=== PATIENT | female | born 1945 | race Caucasian/White ===

== ENCOUNTER → 2018-04-17 11:01 | Outpatient (CLI) | payer MEDICARE, SELFPAY ==
--- NOTE | 2018-04-17 | DI.MG.S_ITS ---
BILATERAL DIGITAL SCREENING MAMMOGRAM 3D/2D WITH CAD: 04/17/2018 CLINICAL: Routine screening. Family history of breast cancer. Comparison is made to exams dated: 04/13/2017 mammogram, 04/03/2016 mammogram, and 03/29/2015 mammogram - [facility]. There are scattered fibroglandular elements in both breasts. Current study was also evaluated with a Computer Aided Detection (CAD) system. There are grouped fine punctate calcifications in the left breast at 11 o'clock posterior depth. No other significant masses, calcifications, or other findings are seen in either breast. IMPRESSION: INCOMPLETE: NEEDS ADDITIONAL IMAGING EVALUATION The grouped fine punctate calcifications in the left breast are indeterminate. Mediolateral, spot magnification, and additional views are recommended. This exam was interpreted at Station ID: [id number]. NOTE: For mammograms, a report in lay terms will be sent to the patient. Approximately 15% of breast malignancies will not be visualized mammographically. In the management of a palpable breast mass, a negative mammogram must not discourage biopsy of a clinically suspicious lesion. Electronically Signed By: Sixto martínez/tony:04/17/2018 16:06:37 letter sent: Additional Imaging Needed ACR BI-RADS Category 0: Incomplete 3340F
== END ==
PROVIDERS: Visit Provider Physician Assistant
DX: Z12.31 Encounter for screening mammogram for malignant neoplasm of breast (principal); Z80.3 Family history of malignant neoplasm of breast; R92.8 Other abnormal and inconclusive findings on diagnostic imaging of breast
CPT/HCPCS: 77063; 77067

== ENCOUNTER → 2018-04-29 08:39 | Outpatient (CLI) | payer MEDICARE, SELFPAY ==
--- NOTE | 2018-04-29 | DI.MG.S_ITS ---
UNILATERAL LEFT DIGITAL DIAGNOSTIC MAMMOGRAM 3D/2D WITH ADDITIONAL VIEWS: 04/29/2018 CLINICAL: Additional evaluation requested from prior study. Comparison is made to exams dated: 04/17/2018 mammogram, 04/13/2017 mammogram, and 04/03/2016 mammogram - [facility]. There are scattered fibroglandular elements in the left breast. There are clustered linear calcifications in the left breast at 11 o'clock posterior depth. No other significant masses or calcifications are seen in the breast. IMPRESSION: SUSPICIOUS OF MALIGNANCY The clustered linear calcifications in the left breast are at a low suspicion for malignancy. A stereotactic biopsy is recommended. This exam was interpreted at Station ID: [id number]. NOTE: For mammograms, a report in lay terms will be sent to the patient. Approximately 15% of breast malignancies will not be visualized mammographically. In the management of a palpable breast mass, a negative mammogram must not discourage biopsy of a clinically suspicious lesion. SUMMARY: This was discussed with the patient by the radiologist Dr. Causey at the time of the exam. Electronically Signed By: Marlin ferrari/:04/29/2018 09:36:46 letter sent: Biopsy Required ACR BI-RADS Category 4a: Suspicious abnormality - low suspicion for malignancy 3344F
== END ==
PROVIDERS: PCP Physician Assistant; Visit Provider Physician Assistant
DX: R92.1 Mammographic calcification found on diagnostic imaging of breast (principal)
CPT/HCPCS: 77065; G0279

== ENCOUNTER → 2018-12-12 08:34 | Outpatient (CLI) | payer MEDICARE, SELFPAY ==
--- NOTE | 2018-12-12 | DI.US.S_ITS ---
PROCEDURE: US CAROTID DOPPLER BI INDICATIONS: OCCLUSION TECHNIQUE: Color and pulse Doppler interrogation was performed of both carotid systems, with image documentation and velocity measurements. COMPARISON: [facility], CAROTID ARTERY DOPPLER BILAT, 01/22/2012, 14:00. [facility], CAROTID ARTERY DOPPLER BILAT, 12/26/2010, 12:44. [facility], , CAROTID ARTERY DOPPLER BILAT, 03/17/2010, 10:46. [facility], , CAROTID ARTERY DOPPLER BILAT, 11/09/2009, 10:54. [facility], , CAROTID ARTERY DOPPLER BILAT, 06/30/2008, 8:30. [facility], , CAROTID ARTERY DOPPLER BILAT, 01/19/2014, 8:53. FINDINGS: Stenosis calculations are based on SRU (Society of Radiologists in Ultrasound) criteria. Right side: Brachial blood pressure: 176/86 mm Hg. Common carotid artery peak systolic velocity: 73 cm/sec (prior 69 cm/s). Internal carotid artery peak systolic velocity: Occluded Internal carotid artery end diastolic velocity: Occluded External carotid artery peak systolic velocity: 124 cm/sec (prior 132 cm/s). ICA/CCA peak systolic ratio: N./A. Oliver scale imaging description: There is an occluded right internal carotid artery, as before. Percent internal carotid artery stenosis: 100% Vertebral artery: Flow direction is antegrade. Left side: Brachial blood pressure: 157/88 mm Hg. Common carotid artery peak systolic velocity: 99 cm/sec (prior 105 cm/s). Internal carotid artery peak systolic velocity: 95 cm/sec (prior 119 cm/s). Internal carotid artery end diastolic velocity: 23 cm/sec (prior 34 cm/s). External carotid artery peak systolic velocity: 113 cm/sec (prior 141 cm/s). ICA/CCA peak systolic ratio: 1 (prior 1.1). Oliver scale imaging description: Moderate atherosclerotic changes are seen. Percent internal carotid artery stenosis: Less than 50% by velocity criteria. Vertebral artery: Flow direction is antegrade. 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 No hemodynamically significant stenosis can be seen involving the left internal carotid artery. Arterial hypertension is measured at the time of this study. Dictated by: Louis Melvin M.D. on 12/12/2018 at 8:50 Approved by: Louis Melvin M.D. on 12/12/2018 at 8:52
== END ==
PROVIDERS: PCP Physician Assistant; Visit Provider Physician Assistant
DX: I65.21 Occlusion and stenosis of right carotid artery (principal)
CPT/HCPCS: 93880

== ENCOUNTER → 2019-06-03 15:08 | Outpatient (CLI) | payer MEDICARE, SELFPAY ==
--- NOTE | 2019-06-03 | DI.MG.S_ITS ---
BILATERAL DIGITAL SCREENING MAMMOGRAM 3D/2D WITH CAD: 06/03/2019 CLINICAL: Routine screening. Family history of breast cancer. Comparison is made to exams dated: 04/29/2018 mammogram, 04/17/2018 mammogram, 04/13/2017 mammogram, and 04/03/2016 mammogram - [facility]. There are scattered fibroglandular elements in both breasts. Current study was also evaluated with a Computer Aided Detection (CAD) system. There are benign vascular calcifications in both breasts. No significant masses, calcifications, or other findings are seen in either breast. There has been no significant interval change. IMPRESSION: There is no mammographic evidence of malignancy. A 1 year screening mammogram is recommended. This exam was interpreted at Station ID: [id number]. NOTE: For mammograms, a report in lay terms will be sent to the patient. Approximately 15% of breast malignancies will not be visualized mammographically. In the management of a palpable breast mass, a negative mammogram must not discourage biopsy of a clinically suspicious lesion. Electronically Signed By: Sixto martínez/tony:06/03/2019 16:56:15 letter sent: Normal Exam ACR BI-RADS Category 2: Benign Finding(s) 3342F
== END ==
PROVIDERS: PCP Internal Medicine; Visit Provider Internal Medicine
DX: Z12.31 Encounter for screening mammogram for malignant neoplasm of breast (principal); Z80.3 Family history of malignant neoplasm of breast
CPT/HCPCS: 77063; 77067

== ENCOUNTER → 2019-06-23 13:40 | Outpatient (CLI) | payer MEDICARE, SELFPAY | PROVIDERS: PCP Internal Medicine; Visit Provider Internal Medicine | DX: M85.88 Other specified disorders of bone density and structure, other site (principal); Z78.0 Asymptomatic menopausal state; E07.9 Disorder of thyroid, unspecified; Z87.891 Personal history of nicotine dependence | CPT/HCPCS: 77080 ==

== ENCOUNTER → 2019-09-23 10:15 | Outpatient (CLI) | payer MEDICARE, SELFPAY ==
[2019-09-23 11:55] LABS: Alanine Aminotransferase 19 IU/L (<35); Albumin 4.5 g/dL (3.5-5.0); Albumin Globulin Ratio 1.3 (1.0-2.8); Alkaline Phosphatase 137 U/L (38-126); Aspartate Aminotransferase 33 IU/L (14-36); BUN Creatinine Ratio 14.4 (6-22); Bilirubin Total 0.7 mg/dL (0.2-1.3); Blood Urea Nitrogen 13 mg/dL (7-17); Calcium 10.5 mg/dL (8.4-10.2); Carbon Dioxide 28 mmol/L (22-32); Chloride 102 mmol/L (98-107); Cholesterol 172 mg/dL (140-199); Estimated Glomerular Filt Rate > 60.0 mL/min (>60); Globulin 3.4 g/dL (1.7-4.1); Glucose 86 mg/dL (80-110); HDL Cholesterol 40 mg/dL (40-60); HEMOLYSIS < 15 (0-50); LDL Cholesterol Calculated 103 mg/dL (<100); Potassium 4.1 mmol/L (3.4-5.1); Sodium 140 mmol/L (137-145); Total Protein 7.9 g/dL (6.3-8.2); Triglycerides 145 mg/dL (35-150)
[2019-09-23 13:00] LABS: Thyroid Stimulating Hormone 2.85 uIU/mL (0.47-4.68)
[2019-09-23 13:06] LABS: Vitamin D 25 Hydroxy (D3) 34.8 ng/mL (30.0-100.0)
== END ==
PROVIDERS: PCP Internal Medicine; Referring Provider Internal Medicine; Visit Provider Internal Medicine
DX: E03.9 Hypothyroidism, unspecified (principal); M85.80 Other specified disorders of bone density and structure, unspecified site; E55.9 Vitamin D deficiency, unspecified; E78.5 Hyperlipidemia, unspecified
CPT/HCPCS: 36415; 80053; 80061; 82306; 84443

== ENCOUNTER → 2020-06-07 09:44 | Outpatient (CLI) | payer MEDICARE, SELFPAY ==
--- NOTE | 2020-06-07 | DI.MG.S_ITS ---
BILATERAL DIGITAL SCREENING MAMMOGRAM 3D/2D WITH CAD: 06/07/2020 CLINICAL: Routine screening. Family history of breast cancer. Comparison is made to exams dated: 06/03/2019 mammogram, 04/29/2018 mammogram, 04/17/2018 mammogram, and 04/13/2017 mammogram - [facility]. There are scattered fibroglandular elements in both breasts. Current study was also evaluated with a Computer Aided Detection (CAD) system. There are benign vascular calcifications in both breasts. No significant masses, calcifications, or other findings are seen in either breast. There has been no significant interval change. IMPRESSION: BENIGN There is no mammographic evidence of malignancy. A 1 year screening mammogram is recommended. This exam was interpreted at Station ID: [id number]. NOTE: For mammograms, a report in lay terms will be sent to the patient. Approximately 15% of breast malignancies will not be visualized mammographically. In the management of a palpable breast mass, a negative mammogram must not discourage biopsy of a clinically suspicious lesion. Electronically Signed By: Marlin ferrari/tony:06/07/2020 12:53:02 letter sent: Normal Exam ACR BI-RADS Category 2: Benign Finding(s) 3342F
== END ==
PROVIDERS: PCP Internal Medicine; Referring Provider Internal Medicine; Visit Provider Internal Medicine
DX: Z12.31 Encounter for screening mammogram for malignant neoplasm of breast (principal); Z80.3 Family history of malignant neoplasm of breast
CPT/HCPCS: 77063; 77067

== ENCOUNTER 2020-09-16 08:38 | Emergency (ER) | payer MEDICARE, SELFPAY ==
[2020-09-16] VITALS (22 sets, daily range): BP systolic 162–241; BP diastolic 62–132; PULSE 67–103; RESP 14–21; TEMP 36.2; O2SAT 98–100; BMI 31.5
--- NOTE | 2020-09-16 09:00 | DI.RAD.S_ITS ---
PROCEDURE: XR CHEST 1V INDICATIONS: chest pain TECHNIQUE: One view of the chest was acquired. COMPARISON: [facility], , CHEST 1 VIEW, 02/14/2016, 12:51. FINDINGS: Surgical changes and devices: None. Lungs and pleura: Lungs are clear. No pleural effusions or pneumothorax. Mediastinum: Mediastinal contours appear normal. Heart size is normal. Bones and chest wall: No suspicious bony lesions. Overlying soft tissues appear unremarkable. IMPRESSION: No acute cardiopulmonary pathology. Dictated by: Heriberto Humphrey M.D. on 09/16/2020 at 9:22 Approved by: Heriberto Humphrey M.D. on 09/16/2020 at 9:40
[2020-09-16 09:09] LABS: Add Manual Diff / Slide Review NO; Basophils Absolute Auto 100 /uL (0-100); Basophils Percent Auto 0.7 % (0-2); Eosinophils Absolute Auto 400 /uL (0-450); Eosinophils Percent Auto 3.8 % (2-4); Hematocrit 43.6 % (36-46); Hemoglobin 14.5 g/dL (12.0-16.0); Lymphocytes Absolute Auto 3400 /uL (1100-4500); Lymphocytes Percent Auto 36.9 % (25-40); Mean Corpuscular HGB Conc 33.4 % (30-36); Mean Corpuscular Hemoglobin 29.8 PG (26-34); Mean Corpuscular Volume 89.3 fL (80-100); Monocytes Absolute Auto 800 /uL (0-900); Monocytes Percent Auto 8.8 % (3-14); Neutrophils Absolute Auto 4600 /uL (1500-7000); Neutrophils Percent Auto 49.8 % (50-75); Platelet Count 304 X10^3/uL (150-400); Red Blood Cell Count 4.88 X10^6/uL (4.0-5.2); Red Cell Distribution Width 13.2 % (11.6-14.8); White Blood Cell Count 9.2 X10^3/uL (4.5-11.0)
[2020-09-16 09:14] LABS: Alanine Aminotransferase 26 IU/L (<35); Albumin 4.3 g/dL (3.5-5.0); Albumin Globulin Ratio 1.2 (1.0-2.8); Alkaline Phosphatase 135 U/L (38-126); Aspartate Aminotransferase 45 IU/L (14-36); BUN Creatinine Ratio 15.1 (6-22); Bilirubin Total 0.7 mg/dL (0.2-1.3); Blood Urea Nitrogen 14 mg/dL (7-17); Calcium 10.1 mg/dL (8.4-10.2); Carbon Dioxide 28 mmol/L (22-32); Chloride 107 mmol/L (98-107); Creatine Kinase 182 U/L (30-135); Estimated Glomerular Filt Rate 58.6 mL/min (>60); Globulin 3.5 g/dL (1.7-4.1); Glucose 106 mg/dL (80-110); Lipase 145 U/L (23-300); Potassium 4.1 mmol/L (3.4-5.1); Sodium 138 mmol/L (137-145); Total Protein 7.8 g/dL (6.3-8.2)
--- NOTE | 2020-09-16 09:15 | ED_ITS ---
HPI - General Adult General Chief complaint: Hypertension Stated complaint: BLOOD PRESSURE HIGH THIS MORNING Time Seen by Provider: 09/16/20 08:44 Source: patient Mode of arrival: Ambulatory Limitations: no limitations History of Present Illness HPI narrative: This is a 74-year-old female who comes to the emergency department with complaint of elevated blood pressure. Patient states she has also had some left-sided chest pain as well as pain in her shoulder blades for the last 3 days. This morning she had some fluttering sensation or chest. She went to check her blood pressure noted it was 190/105 with a pulse of 75. She states for the last 3 days she has had some discomfort under the left axillary area radiating to her left breast. She also noted this morning that she has had some discomfort between the middle of her shoulder blades in the midthoracic region. She describes it as 2/10. Patient stays that nothing seems to exacerbate it other than palpation underneath the armpit region. Exertion does not worsen it. She denies fevers, chills, cough, cold or congestion. She denies any shortness of breath. She has some mild nausea this morning. Denies any issues with vomiting, no diaphoresis except when she carried a total of 10 bags weighing 50 lb each up the stairs earlier this week. Patient did have a stroke in 2007, she takes medication for hypertension dyslipidemia hypothyroidism. This includes lisinopril, atorvastatin levothyroxine which she also took this morning. She takes an aspirin 81 mg daily. She denies any prior heart attacks, no stress test or catheterization in the past. Denies any surgeries. No tobacco, alcohol or illicit. Primary care was Caroline Hines who is leaving the area and she is transitioning to [facility] [place]. Related Data Home Medications Medication Instructions Recorded Confirmed ASPIRIN (Aspirin Low Dose) 81 mg PO Q DAY #0 06/08/10 CALCIUM CARBONATE/VITAMIN D3 600 mg PO Q DAY #0 06/08/10 (Oyster Shell Calcium-Vit D Tab) CHOLECALCIFEROL (VITAMIN D3) 200 iu PO Q DAY #0 06/08/10 (Vitamin D3) Previous Rx's Medication Instructions Recorded lisinopril 40 mg PO DAILY #20 tab 09/16/20 Allergies Allergy/AdvReac Type Severity Reaction Status Date / Time No Known Drug Allergies Allergy Verified 09/16/20 08:45 Review of Systems Review of Systems ROS Unobtainable: All systems reviewed & are unremarkable except as noted in HPI and below Patient History Social History Smoking Status: Unknown if ever smoked Smoking Status: Unknown if ever smoked alcohol intake frequency: holidays/special occasions only Substance Use Type: does not use Exam Narrative Exam Narrative: GENERAL: Alert and oriented x three, well-nourished, well- appearing elderly female in mild distress. HEENT: Head normocephalic, atraumatic, EOMI, pupils reactive, face symmetric, moist mucous membranes NECK: Supple, full range of motion CARDIOVASCULAR: Regular rate and rhythm without murmurs, rubs or gallops. RESPIRATORY: Breath sounds equal bilaterally, no wheezes rales or rhonchi. ABDOMEN: Soft, nontender. Normoactive bowel sounds all 4 quadrants. No guarding or rebound, rigidity, no mass : No CVA tenderness BACK: No cervical, thoracic or lumbar vertebral point tenderness. Patient has some mild midline thoracic tenderness in the soft tissue on each side of the spine. Patient has normal range of motion. Patient's gait is normal. Patient has tenderness with palpation in the left lateral chest in the soft tissue over rib 5-6 region. No swelling, warmth or skin changes. No lumps or nodules noted. EXTREMITIES: Normal range of motion, no clubbing or edema. Neurovascularly intact NEUROLOGICAL: Cranial nerves II through XII grossly intact. Moving all extremities SKIN: Warm, dry, no petechiae, no rashes or lesions. Initial Vital Signs Initial Vital Signs: Vital Signs Temperature 97.1 F L 09/16/20 08:40 Pulse Rate 103 H 09/16/20 08:40 Respiratory Rate 15 09/16/20 08:40 Blood Pressure 241/109 H 09/16/20 08:40 Pulse Oximetry 98 09/16/20 08:40 Course Orders Ordered: ED Orders 09/16/20 10:45 Troponin I Stat Discontinued Medications Amlodipine Besylate (Amlodipine 5 Mg Tablet) 5 mg PO NOW ONE Stop: 09/16/20 10:01 Last Admin: 09/16/20 10:04 Dose: 5 mg Documented by: SARKIS Aspirin (Aspirin 81 Mg Chew Tab) 324 mg PO NOW ONE Stop: 09/16/20 09:16 Last Admin: 09/16/20 09:20 Dose: 243 mg Documented by: SARIKS Hydralazine HCl (Hydralazine 20 Mg/Ml Vial) 10 mg IV NOW ONE Stop: 09/16/20 11:42 Last Admin: 09/16/20 12:06 Dose: 10 mg Documented by: AHMET Reevaluation(s) Reevaluation #1: Follow up with patient, BP improved to 160 but then returned to 200 range. Given amlodipine 5mg in ED. Plan for repeat ekg and trop. Patient is currently on lisinopril 10mg daily. Time: 10:11 Vital Signs Vital signs: Vital Signs - 8 hr 09/16/20 11:00 09/16/20 11:15 09/16/20 11:30 Pulse Rate 67 68 67 Respiratory Rate 16 18 14 Blood Pressure 162/62 H Pulse Oximetry 100 99 99 09/16/20 11:45 09/16/20 12:00 09/16/20 12:07 Pulse Rate 75 71 77 Respiratory Rate 19 18 21 Blood Pressure 210/132 H Pulse Oximetry 99 99 99 09/16/20 12:10 09/16/20 12:15 09/16/20 12:21 Pulse Rate 76 81 84 Respiratory Rate 16 18 Blood Pressure 182/79 H 169/62 H 164/74 H Pulse Oximetry 98 99 09/16/20 12:27 Pulse Rate 81 Respiratory Rate 20 Blood Pressure 164/74 H Pulse Oximetry 100 Medical Decision Making Lab Data Lab results reviewed: Yes I reviewed the patient's lab results. Result diagrams: 09/16/20 08:45 09/16/20 08:45 Labs: Lab Results 09/16/20 09/16/20 09/16/20 Range/Units 08:45 08:45 10:45 WBC 9.2 (4.5-11.0) X10^3/uL RBC 4.88 (4.0-5.2) X10^6/uL Hgb 14.5 (12.0-16.0) g/dL Hct 43.6 (36-46) % MCV 89.3 (80-100) fL MCH 29.8 (26-34) PG MCHC 33.4 (30-36) % RDW 13.2 (11.6-14.8) % Plt Count 304 (150-400) X10^3/uL Neut % (Auto) 49.8 L (50-75) % Lymph % (Auto) 36.9 (25-40) % Greene % (Auto) 8.8 (3-14) % Eos % (Auto) 3.8 (2-4) % Baso % (Auto) 0.7 (0-2) % Neut # (Auto) 4600 (9964-8251) /uL Lymph # (Auto) 3400 (1376-9535) /uL Greene # (Auto) 800 (0-900) /uL Eos # (Auto) 400 (0-450) /uL Baso # (Auto) 100 (0-100) /uL Sodium 138 (137-145) mmol/L Potassium 4.1 (3.4-5.1) mmol/L Chloride 107 (98-107) mmol/L Carbon Dioxide 28 (22-32) mmol/L BUN 14 (7-17) mg/dL Creatinine 0.93 (0.52-1.04) mg/dL Estimated GFR 58.6 L (>60) mL/min BUN/Creatinine Ratio 15.1 (6-22) Glucose 106 (80-110) mg/dL Calcium 10.1 (8.4-10.2) mg/dL Total Bilirubin 0.7 (0.2-1.3) mg/dL AST 45 H (14-36) IU/L ALT 26 (<35) IU/L Alkaline Phosphatase 135 H (38-126) U/L Total Creatine Kinase 182 H (30-135) U/L CK-MB (CK-2) 1.91 (<2.37) ng/mL CK-MB (CK-2) Rel Index 1.0 L (1.5-5.0) % Troponin I < 0.012 < 0.012 (0.01-0.034) ng/mL Total Protein 7.8 (6.3-8.2) g/dL Albumin 4.3 (3.5-5.0) g/dL Globulin 3.5 (1.7-4.1) g/dL Albumin/Globulin Ratio 1.2 (1.0-2.8) Lipase 145 (23-300) U/L Imaging Data Chest x-ray: Radiologist's Impression: [address] [id number] ReportSigned Patient: April Lobo BMR#: [id number]: 4Acct:[id number]/Sex: 74 / FDate of Service: 09/16/20Loc: EDAccession Number: [id number] Procedure: XR chest 1V Ordering Provider: Jacquelyn Brown D.O. PROCEDURE: XR CHEST 1V INDICATIONS: chest pain TECHNIQUE: One view of the chest was acquired. COMPARISON: [facility], CHEST 1 VIEW, 02/14/2016, 12:51. FINDINGS: Surgical changes and devices: None. Lungs and pleura: Lungs are clear. No pleural effusions or pneumothorax. Mediastinum: Mediastinal contours appear normal. Heart size is normal. Bones and chest wall: No suspicious bony lesions. Overlying soft tissues appear unremarkable. IMPRESSION: No acute cardiopulmonary pathology. Dictated by: Heriberto Humphrey M.D. on 09/16/2020 at 9:22 Approved by: Heriberto Humphrey M.D. on 09/16/2020 at 9:40 ECG Data Attestation: I personally reviewed and interpreted this ECG as follows: Prior ECG tracings: available for review Interpretation: Sinus rhythm rate of 75 OH 152 QRS is 66 and QTC of 419. No ST elevation depression appreciated. Patient has prior from 02/14/16 that appears s imilar. EKG2. Sinus rhythm rate of 66, P are 162, QRS of [address]TC [address] elevation depression. Patient has prior EKG from today and 02/14/16. [facility] Narrative Medical decision making narrative: This is a 74-year-old female who comes to the emergency department with complaint of hypertension, patient also describes some chest pain and upper thoracic back pain. Patient's chest and thoracic back pain began after she carried [address] 50 lb up the stairs earlier in the week. She has tried some Tylenol with improvement. Her main concern is she was hypertensive this morning and has a history of CVA. Patient had her morning medications but continues to be quite hypertensive. Her lowest ever was 160 but she continues to be 200 consistently. The given oral amlodipine monitored for over an hour and a half with minimal improvement. She was given 1 dose of hydralazine and we discussed increasing her lisinopril for the short term with follow-up with primary care. Patient does not appear to have any end-organ disease and I suspect that her thoracic and left-sided chest pain are more secondary to musculoskeletal changes based on her exam findings as well as lab, EKG and recent history. Discharge Plan Departure Patient Disposition: Home Clinical Impression: Hypertension, Back pain, thoracic Instructions: DI for High Blood Pressure Activity Restrictions/Additional Instructions: Follow up with your physician in the next several days. Call for an appointment or phone visit. Discuss with your physician about if you need to continue with the increased dose of your blood pressure medication or if it should be adjusted. Increase your lisinopril from 20mg to 40mg once daily. You may take Tylenol up to a 1000 mg every 8 hours as needed for pain. Continue your other home medications as prescribed. Return to the ER for fevers, dizziness, passing out, new or worsening chest pain, shortness of breath, severe abdominal pain, swelling in your extremities, severe headaches, difficulty with speech, movement, new numbness weakness or inability to use your extremities or other new or concerning symptoms. Prescriptions: New lisinopril 20 mg tablet 40 mg PO DAILY Qty: 20 RF: 0 No Action ASPIRIN (Aspirin Low Dose) 81 mg PO Q DAY Qty: 0 RF: 0 CALCIUM CARBONATE/VITAMIN D3 (Oyster Shell Calcium-Vit D Tab) 600 mg PO Q DAY Qty: 0 RF: 0 CHOLECALCIFEROL (VITAMIN D3) (Vitamin D3) 200 iu PO Q DAY Qty: 0 RF: 0 Referrals: Caroline Hines MD [Non-Staff] -
[2020-09-16] MEDS: ASPIRIN 81 MG CHEW TAB 324 MG PO (09:20)
[2020-09-16 09:25] LABS: Troponin I < 0.012 ng/mL (0.01-0.034)
[2020-09-16 09:29] LABS: Creatine Kinase MB 1.91 ng/mL (<2.37); HEMOLYSIS 20 (0-50)
[2020-09-16] MEDS: AMLODIPINE 5 MG TABLET PO (10:04)
[2020-09-16 11:28] LABS: Troponin I < 0.012 ng/mL (0.01-0.034)
[2020-09-16] MEDS: HYDRALAZINE 20 MG/ML VIAL 10 MG IV (12:06)
== END 2020-09-16 12:27 | disposition home or self-care (01) ==
PROVIDERS: Emergency Provider Emergency Medicine; PCP Internal Medicine
DX: I10 Essential (primary) hypertension (principal); M54.6 Pain in thoracic spine; R07.9 Chest pain, unspecified; R11.0 Nausea; E78.5 Hyperlipidemia, unspecified; E03.9 Hypothyroidism, unspecified
CPT/HCPCS: 36415; 71045; 80053; 82550; 82553; 83690; 84484; 85025; 93005; 96374; 99283; 99284; J0360

== ENCOUNTER → 2021-04-21 13:27 | Outpatient (CLI) | payer MEDICARE, SELFPAY ==
--- NOTE | 2021-04-21 | DI.MG.S_ITS ---
BILATERAL DIGITAL DIAGNOSTIC MAMMOGRAM 3D/2D: 04/21/2021 CLINICAL: Left breast lump reported to be near the inferomedial aspect of the anterior left breast. This is no longer felt by the patient during today's evaluation. No focal findings reported on clinical breast exam. Comparison is made to exams dated: 06/07/2020 mammogram, 06/03/2019 mammogram, and 04/17/2018 mammogram - [facility]. There are scattered fibroglandular elements in both breasts. No significant masses, calcifications, or other findings are seen in either breast. IMPRESSION: NEGATIVE There is no abnormality seen in the left breast to correspond with the area of clinical concern and palpable abnormality, however, recommend clinical follow up for recurrent or worsening symptoms, or development of any clinically suspicious findings. There is no mammographic evidence of malignancy. A 1 year screening mammogram is recommended. Findings and recommendations were conveyed to the patient during today's evaluation. This exam was interpreted at Station ID: [id number]. NOTE: For mammograms, a report in lay terms will be sent to the patient. Approximately 15% of breast malignancies will not be visualized mammographically. In the management of a palpable breast mass, a negative mammogram must not discourage biopsy of a clinically suspicious lesion. Electronically Signed By: Wyatt Cano M.D. aty/:04/21/2021 14:32:30 letter sent: Clinical Evaluation ACR BI-RADS Category 1: Negative 3341F
== END ==
PROVIDERS: PCP Internal Medicine; Referring Provider Internal Medicine; Visit Provider Internal Medicine
DX: R92.8 Other abnormal and inconclusive findings on diagnostic imaging of breast (principal); N63.20 Unspecified lump in the left breast, unspecified quadrant
CPT/HCPCS: 77066; G0279

== ENCOUNTER → 2022-05-09 12:52 | Outpatient (CLI) | payer MEDICARE, SELFPAY ==
--- NOTE | 2022-05-09 | DI.MG.S_ITS ---
BILATERAL DIGITAL SCREENING MAMMOGRAM 3D/2D WITH CAD: 05/09/2022 CLINICAL: Routine screening. Family history of breast cancer. Comparison is made to exams dated: 04/21/2021 mammogram, 06/07/2020 mammogram, and 06/03/2019 mammogram - [facility]. There are scattered areas of fibroglandular density in both breasts (category b / 25%-50% glandular tissue). Current study was also evaluated with a Computer Aided Detection (CAD) system. There are benign vascular calcifications in both breasts. No significant masses, calcifications, or other findings are seen in either breast. There has been no significant interval change. IMPRESSION: BENIGN There is no mammographic evidence of malignancy. A 1 year screening mammogram is recommended. Based on the Tyrer Cuzick model (a risk assessment model) the patient's lifetime risk is 4.3% and her 10 year risk is 0.0%. According to the ACR, ACS, and NCCN guidelines, an annual breast MRI exam along with mammogram is recommended if the patient's lifetime risk is 20% or greater. This exam was interpreted at Station ID: [id number]. NOTE: For mammograms, a report in lay terms will be sent to the patient. Approximately 15% of breast malignancies will not be visualized mammographically. In the management of a palpable breast mass, a negative mammogram must not discourage biopsy of a clinically suspicious lesion. Electronically Signed By: Wyatt flynn/tony:05/09/2022 18:05:31 letter sent: Normal Exam ACR BI-RADS Category 2: Benign Finding(s) 3342F
== END ==
PROVIDERS: PCP Internal Medicine; Referring Provider Internal Medicine; Visit Provider Internal Medicine
DX: Z12.31 Encounter for screening mammogram for malignant neoplasm of breast (principal); Z80.3 Family history of malignant neoplasm of breast
CPT/HCPCS: 77063; 77067

== ENCOUNTER → 2022-06-12 11:27 | Outpatient (CLI) | payer MEDICARE, SELFPAY ==
--- NOTE | 2022-06-12 | DI.ECHO.S_ITS ---
[place] [facility]---------+ [facility] +---------+ : : [address] : : : : [id number] : : : : Phone: [phone]+ Echocardiogram Report + + :Name: ESTHER REYES Study Date: 06/12/2022 Height: 63 in : :[facility] ReadingLocation: Weight: 172 lb : : Gender: Female BSA: 1.8 m2 : :: 1945 Age: 76 yrs BP: 177/84 mmHg: :Reason For Study: Murmur : :Ordering Physician: YAJAIRA, : :DIEGO Performed By: Rakesh Nava : :Referring: DIEGO GATES : + + Interpretation Summary Normal left ventricle size with ejection fraction 60-65%. Moderate aortic valve sclerosis. Procedure: A two-dimensional transthoracic echocardiogram with color flow and Doppler was performed. The study quality was technically adequate. There is no prior echocardiogram noted for this patient. Left Ventricle: The left ventricle is normal in size and wall thickness. The ejection fraction is estimated to be 60-65%. There are no focal wall motion abnormalities. Diastolic function could not be accurately assessed due to contradictory data. Right Ventricle: The right ventricle is normal in size and function. Atria: Both atria are normal in size. The interatrial septum grossly appears intact with no obvious evidence for an atrial septal defect. Mitral Valve: The mitral valve is normal in structure and function. There is trace mitral regurgitation. Aortic Valve: There is moderate aortic valve sclerosis. No aortic regurgitation is present. Tricuspid Valve: The tricuspid valve is normal in structure and function. There is trace tricuspid regurgitation. The right ventricular systolic pressure is estimated to be at least 34 mmHg based on an estimated right atrial pressure of 3 mm Hg. Pulmonic Valve: The pulmonic valve is normal in structure and function. There is trace pulmonic regurgitation. Great Vessels: The aortic root is normal size. The dimensions of the ascending aorta are normal. The IVC is of normal diameter and collapses greater than 50% with a sniff. This suggests a low right atrial pressure of 3 mm Hg. Pericardium/ Pleura There is no pericardial effusion. There is no pleural effusion. MMode/2D Measurements & Calculations LVIDd: 3.9 cm LVOT diam: 1.7 cm LVIDs: 2.5 cm Ao root diam: 2.6 cm FS: 35.9 % asc Aorta Diam: 3.0 cm IVSd: 0.70 cm LVPWd: 0.80 cm LV liao. diameter/BSA (cm/m^2): 2.2 LV sys. diameter/BSA (cm/m^2): 1.4 LA dimension: 2.6 cm RA long axis: 3.8 cm LA A2 area: 13.8 cm2 LA A4 area: 11.5 cm2 LA length (vol): 4.6 cm LA vol: 29.3 ml LA vol index: 16.2 ml/m2 TAPSE_phl: 2.5 cm Doppler Measurements & Calculations Ao V2 max: 176.0 cm/sec LVOT Max Chente: 151.0 cm/sec Ao V2 mean: 120.0 cm/sec LV V1 max P.1 mmHg Ao max P.0 mmHg LV V1 VTI: 31.1 cm Ao mean P.0 mmHg ANGEL(I,D): 2.0 cm2 Ao V2 VTI: 35.2 cm ANGEL(V,D): 1.9 cm2 sev ratio: 0.88 ANGEL indexed to BSA (cm^2/m^2): 1.1 MV E max chente: 99.4 cm/sec TR max chente: 277.0 cm/sec MV A max chente: 116.0 cm/sec TR max P.7 mmHg MV E/A: 0.86 Med Peak E' Chente: 7.6 cm/sec E/E' med: 13.0 Lat Peak E' Chente: 7.2 cm/sec E/E' lat: 13.9 E/e' average: 13.4 MV dec time: 0.22 sec SV(LVOT): 70.6 ml AV VR_phl: 0.86 ANGEL(VTI)/BSA_phl: 1.1 MV P1/2t-pr_phl: 65.0 msec Electronically signed by: Tang Hodgson on Reading Physician:06/12/2022 04:18 PM
== END ==
PROVIDERS: PCP Internal Medicine; Referring Provider Internal Medicine; Visit Provider Internal Medicine
DX: R01.1 Cardiac murmur, unspecified (principal); I35.8 Other nonrheumatic aortic valve disorders
CPT/HCPCS: 93306

== ENCOUNTER → 2023-06-09 12:31 | Outpatient (CLI) | payer MEDICARE, SELFPAY ==
--- NOTE | 2023-06-09 | DI.MG.S_ITS ---
BILATERAL DIGITAL SCREENING MAMMOGRAM 3D/2D WITH CAD: 06/09/2023 CLINICAL: Routine screening. Family history of breast cancer. Comparison is made to exams dated: 05/09/2022 mammogram, 04/21/2021 mammogram, 06/07/2020 mammogram, and 06/03/2019 mammogram - [facility]. There are scattered areas of fibroglandular density in both breasts (category b / 25%-50% glandular tissue). Current study was also evaluated with a Computer Aided Detection (CAD) system. There are benign vascular calcifications in both breasts. There also is a biopsy clip in the left breast. No significant masses, calcifications, or other findings are seen in either breast. There has been no significant interval change. IMPRESSION: BENIGN There is no mammographic evidence of malignancy. A 1 year screening mammogram is recommended. Based on the Tyrer Cuzick model (a risk assessment model) the patient's lifetime risk is 3.8% and her 10 year risk is 0.0%. According to the ACR, ACS, and NCCN guidelines, an annual breast MRI exam along with mammogram is recommended if the patient's lifetime risk is 20% or greater. This exam was interpreted at Station ID: [id number]. NOTE: For mammograms, a report in lay terms will be sent to the patient. Approximately 15% of breast malignancies will not be visualized mammographically. In the management of a palpable breast mass, a negative mammogram must not discourage biopsy of a clinically suspicious lesion. Electronically Signed By: Gilberto durán/tony:06/11/2023 15:35:43 letter sent: Normal Exam ACR BI-RADS Category 2: Benign Finding(s) 3342F
== END ==
PROVIDERS: PCP Internal Medicine; Referring Provider Internal Medicine; Visit Provider Internal Medicine
DX: Z12.31 Encounter for screening mammogram for malignant neoplasm of breast (principal); Z80.3 Family history of malignant neoplasm of breast
CPT/HCPCS: 77063; 77067

== ENCOUNTER 2024-02-25 16:53 | Emergency (ER) | payer MEDICARE, SELFPAY ==
[2024-02-25] VITALS (13 sets, daily range): BP systolic 127–169; BP diastolic 60–81; PULSE 62–81; RESP 12–24; TEMP 36.7–36.9; O2SAT 96–99; BMI 29.7
--- NOTE | 2024-02-25 16:56 | EKG_ITS ---
[address] [address] Test Date: 2024-02-25 Pat Name: April Lobo Department: Room: Gender: Female [employer]: FARZANA : 1945 Requested By: Order Number: [id number] Reading MD: Zenon Fallon MD Measurements Intervals [place] Rate: 67 P: 23 CA: 146 QRS: 29 QRSD: 70 T: 44 QT: 398 QTc: 420 Interpretive Statements Poor data quality, interpretation may be adversely affected Normal sinus rhythm Electronically Signed On 02-26-2024 7:28:40 PDT by Zenon Fallon MD
[2024-02-25] MEDS: SODIUM CHLORIDE 0.9% 1,000 ML 1000 ML IV (17:09)
[2024-02-25 17:25] LABS: Add Manual Diff / Slide Review NO; Basophils Absolute Auto 100 /uL (0-100); Basophils Percent Auto 0.7 % (0-2); Eosinophils Absolute Auto 200 /uL (0-450); Eosinophils Percent Auto 2.7 % (2-4); Hematocrit 35.4 % (36-46); Hemoglobin 11.9 g/dL (12.0-16.0); Lymphocytes Absolute Auto 2000 /uL (1100-4500); Lymphocytes Percent Auto 26.9 % (25-40); Mean Corpuscular HGB Conc 33.7 % (30-36); Mean Corpuscular Hemoglobin 29.9 PG (26-34); Monocytes Absolute Auto 700 /uL (0-900); Monocytes Percent Auto 9.9 % (3-14); Neutrophils Absolute Auto 4500 /uL (1500-7000); Neutrophils Percent Auto 59.8 % (50-75); Platelet Count 247 X10^3/uL (150-400); Red Blood Cell Count 3.98 X10^6/uL (4.0-5.2); Red Cell Distribution Width 13.5 % (11.6-14.8); White Blood Cell Count 7.6 X10^3/uL (4.5-11.0)
[2024-02-25 17:29] LABS: BUN Creatinine Ratio 13.5 (6-22); Blood Urea Nitrogen 15 mg/dL (7-17); Carbon Dioxide 22 mmol/L (22-32); Chloride 112 mmol/L (98-107); Estimated Glomerular Filt Rate 50 mL/min (>60); Glucose 90 mg/dL (80-110); HEMOLYSIS < 15 (0-50); Sodium 141 mmol/L (137-145)
--- NOTE | 2024-02-25 18:06 | ED.DIZZY ---
HPI - Dizziness General Chief Complaint: Syncope Stated Complaint: near syncope Time Seen by Provider: 02/25/24 16:56 Source: patient and EMS Mode of arrival: EMS History of Present Illness HPI Narrative: 78-year-old female was standing and walking around working with [employer] on her patio at home this afternoon, felt dizzy like she might pass out, lightheaded, no spinning sensation, no chest pain, no heart racing or palpitation symptoms, no diaphoresis. She did not actually pass out, sat down and felt better. No recent fevers chills cough. No nausea or vomiting or diarrhea. No black or red stools. No chest pain or shortness of breath. No diaphoresis. She thinks that she might be dehydrated. She did not eat breakfast, and had not been drinking much through the morning as she was busy doing tasks. She denies focal weakness to face arm or leg. She has no headache or neck pain. No back pain or flank pain. Related Data Home Medications Medication Instructions Recorded Confirmed ASPIRIN (Aspirin Low Dose) 81 mg PO Q DAY ##0 06/08/10 CALCIUM CARBONATE/VITAMIN D3 600 mg PO Q DAY ##0 06/08/10 (Oyster Shell Calcium-Vit D Tab) CHOLECALCIFEROL (VITAMIN D3) 200 iu PO Q DAY ##0 06/08/10 (Vitamin D3) Previous Rx's Medication Instructions Recorded lisinopril 20 mg tablet 40 mg (2 x 20 mg) PO DAILY #20 tabs 09/16/20 Allergies Allergy/AdvReac Type Severity Reaction Status Date / Time No Known Drug Allergies Allergy Verified 09/16/20 08:45 Review of Systems Review of Systems Narrative: See HPI Patient History Social History Smoking Status: Unknown if ever smoked Smoking Status: Unknown if ever smoked alcohol intake frequency: holidays/special occasions only Substance Use Type: does not use Exam Narrative Exam Narrative: GENERAL: Well-developed patient, alert, cooperative HEAD: Atraumatic. Normocephalic. EYES: Pupils equal round and reactive. Extraocular motions intact. No scleral icterus. No injection or drainage. ENT: Nose without bleeding, purulent drainage. Throat without erythema, tonsillar hypertrophy or exudate. Airway patent. NECK: Trachea midline. Non tender CARDIOVASCULAR: Regular rate and rhythm without murmurs, gallops, or rubs. RESPIRATORY: Clear to auscultation. Breath sounds equal bilaterally. No wheezes, rales, or rhonchi. GASTROINTESTINAL: Abdomen soft, non-tender, nondistended. EXTREMITIES: No edema or joint tenderness. BACK: Nontender without deformity or crepitance. No flank tenderness. NEURO: AOx3. Nonfocal neuro exam SKIN: No rash or erythema of visible areas Initial Vital Signs Initial Vital Signs: Vital Signs Pulse Rate 81 02/25/24 16:56 Pulse Oximetry 98 02/25/24 16:56 Course Orders Ordered: ED Orders 02/25/24 16:56 EKG-12 Lead Stat 02/25/24 17:11 Basic Metabolic Panel Stat CMP [Comprehensive Metabolic Panel] Stat Complete Blood Count AUTO DIFF Stat Troponin I Stat 02/25/24 18:21 EKG-12 Lead Stat 02/25/24 19:05 Trop I [Troponin I] Stat Discontinued Medications Sodium Chloride (Normal Saline 0.9%) 1,000 mls @ 1,000 mls/hr IV BOLUS ONE Stop: 02/25/24 17:55 Last Infusion: 02/25/24 17:52 Dose: Infused Documented By: Admin: 02/25/24 17:09 Dose: 1,000 mls/hr Documented By: JULIANA Vital Signs Vital signs: Vital Signs - 8 hr 02/25/24 16:56 02/25/24 16:57 02/25/24 16:57 Temperature Pulse Rate 81 80 Respiratory Rate Blood Pressure 169/74 H Pulse Oximetry 98 97 Oxygen Delivery Method 02/25/24 17:00 02/25/24 17:00 02/25/24 17:00 Temperature 98.0 F Pulse Rate 77 72 Respiratory Rate 18 12 Blood Pressure 169/74 H 150/74 H Pulse Oximetry 97 97 Oxygen Delivery Method Room Air 02/25/24 17:30 02/25/24 17:31 02/25/24 17:31 Temperature Pulse Rate 63 65 Respiratory Rate 21 23 Blood Pressure 133/81 Pulse Oximetry 98 99 Oxygen Delivery Method 02/25/24 17:59 02/25/24 18:00 02/25/24 18:00 Temperature Pulse Rate 67 63 Respiratory Rate 23 21 Blood Pressure 127/61 Pulse Oximetry 98 99 Oxygen Delivery Method 02/25/24 18:30 02/25/24 18:31 02/25/24 18:31 Temperature Pulse Rate 67 63 Respiratory Rate 21 17 Blood Pressure 159/70 H Pulse Oximetry 98 98 Oxygen Delivery Method 02/25/24 19:00 02/25/24 19:01 02/25/24 19:01 Temperature Pulse Rate 70 62 Respiratory Rate 22 18 Blood Pressure 130/60 Pulse Oximetry 96 97 Oxygen Delivery Method 02/25/24 19:30 02/25/24 19:30 02/25/24 20:35 Temperature 98.5 F Pulse Rate 70 72 Respiratory Rate 24 18 Blood Pressure 147/70 H 152/66 H Pulse Oximetry 97 97 Oxygen Delivery Method Room Air MDM - Dizziness Lab Data Attestation: I reviewed the patient's lab results. 02/25/24 17:11 02/25/24 17:11 Labs: Lab Results 02/25/24 02/25/24 02/25/24 Range/Units 17:11 17:11 17:11 WBC 7.6 (4.5-11.0) X10^3/uL RBC 3.98 L (4.0-5.2) X10^6/uL Hgb 11.9 L (12.0-16.0) g/dL Hct 35.4 L (36-46) % MCV 89.0 (80-100) fL MCH 29.9 (26-34) PG MCHC 33.7 (30-36) % RDW 13.5 (11.6-14.8) % Plt Count 247 (150-400) X10^3/uL Neut % (Auto) 59.8 (50-75) % Lymph % (Auto) 26.9 (25-40) % [place] % (Auto) 9.9 (3-14) % Eos % (Auto) 2.7 (2-4) % Baso % (Auto) 0.7 (0-2) % Neut # (Auto) 4500 (0158-1166) /uL Lymph # (Auto) 2000 (2303-2151) /uL [place] # (Auto) 700 (0-900) /uL Eos # (Auto) 200 (0-450) /uL Baso # (Auto) 100 (0-100) /uL Sodium 141 139 (137-145) mmol/L Potassium 4.0 4.0 (3.4-5.1) mmol/L Chloride 112 H (98-107) mmol/L Carbon Dioxide (22-32) mmol/L BUN (7-17) mg/dL Creatinine (0.52-1.04) mg/dL Estimated GFR (>60) mL/min BUN/Creatinine Ratio (6-22) Glucose (80-110) mg/dL Calcium (8.4-10.2) mg/dL Total Bilirubin (0.2-1.3) mg/dL AST (14-36) IU/L ALT (<35) IU/L Alkaline Phosphatase (38-126) U/L Troponin I (0.01-0.034) ng/mL Total Protein (6.3-8.2) g/dL Albumin (3.5-5.0) g/dL Globulin (1.7-4.1) g/dL Albumin/Globulin Ratio (1.0-2.8) 02/25/24 02/25/24 02/25/24 Range/Units 17:11 17:11 17:11 WBC (4.5-11.0) X10^3/uL RBC (4.0-5.2) X10^6/uL Hgb (12.0-16.0) g/dL Hct (36-46) % MCV (80-100) fL MCH (26-34) PG MCHC (30-36) % RDW (11.6-14.8) % Plt Count (150-400) X10^3/uL Neut % (Auto) (50-75) % Lymph % (Auto) (25-40) % [place] % (Auto) (3-14) % Eos % (Auto) (2-4) % Baso % (Auto) (0-2) % Neut # (Auto) (9975-3102) /uL Lymph # (Auto) (4106-5847) /uL [place] # (Auto) (0-900) /uL Eos # (Auto) (0-450) /uL Baso # (Auto) (0-100) /uL Sodium (137-145) mmol/L Potassium (3.4-5.1) mmol/L Chloride 113 H (98-107) mmol/L Carbon Dioxide 22 21 L (22-32) mmol/L BUN 15 15 (7-17) mg/dL Creatinine 1.11 H (0.52-1.04) mg/dL Estimated GFR (>60) mL/min BUN/Creatinine Ratio (6-22) Glucose (80-110) mg/dL Calcium (8.4-10.2) mg/dL Total Bilirubin (0.2-1.3) mg/dL AST (14-36) IU/L ALT (<35) IU/L Alkaline Phosphatase (38-126) U/L Troponin I (0.01-0.034) ng/mL Total Protein (6.3-8.2) g/dL Albumin (3.5-5.0) g/dL Globulin (1.7-4.1) g/dL Albumin/Globulin Ratio (1.0-2.8) 02/25/24 02/25/24 02/25/24 Range/Units 17:11 17:11 17:11 WBC (4.5-11.0) X10^3/uL RBC (4.0-5.2) X10^6/uL Hgb (12.0-16.0) g/dL Hct (36-46) % MCV (80-100) fL MCH (26-34) PG MCHC (30-36) % RDW (11.6-14.8) % Plt Count (150-400) X10^3/uL Neut % (Auto) (50-75) % Lymph % (Auto) (25-40) % [place] % (Auto) (3-14) % Eos % (Auto) (2-4) % Baso % (Auto) (0-2) % Neut # (Auto) (7080-3277) /uL Lymph # (Auto) (6300-6951) /uL [place] # (Auto) (0-900) /uL Eos # (Auto) (0-450) /uL Baso # (Auto) (0-100) /uL Sodium (137-145) mmol/L Potassium (3.4-5.1) mmol/L Chloride (98-107) mmol/L Carbon Dioxide (22-32) mmol/L BUN (7-17) mg/dL Creatinine 1.10 H (0.52-1.04) mg/dL Estimated GFR 50 L 51 L (>60) mL/min BUN/Creatinine Ratio 13.5 13.6 (6-22) Glucose 90 (80-110) mg/dL Calcium (8.4-10.2) mg/dL Total Bilirubin (0.2-1.3) mg/dL AST (14-36) IU/L ALT (<35) IU/L Alkaline Phosphatase (38-126) U/L Troponin I (0.01-0.034) ng/mL Total Protein (6.3-8.2) g/dL Albumin (3.5-5.0) g/dL Globulin (1.7-4.1) g/dL Albumin/Globulin Ratio (1.0-2.8) 02/25/24 02/25/24 02/25/24 Range/Units 17:11 17:11 19:05 WBC (4.5-11.0) X10^3/uL RBC (4.0-5.2) X10^6/uL Hgb (12.0-16.0) g/dL Hct (36-46) % MCV (80-100) fL MCH (26-34) PG MCHC (30-36) % RDW (11.6-14.8) % Plt Count (150-400) X10^3/uL Neut % (Auto) (50-75) % Lymph % (Auto) (25-40) % [place] % (Auto) (3-14) % Eos % (Auto) (2-4) % Baso % (Auto) (0-2) % Neut # (Auto) (8973-5551) /uL Lymph # (Auto) (0990-9967) /uL [place] # (Auto) (0-900) /uL Eos # (Auto) (0-450) /uL Baso # (Auto) (0-100) /uL Sodium (137-145) mmol/L Potassium (3.4-5.1) mmol/L Chloride (98-107) mmol/L Carbon Dioxide (22-32) mmol/L BUN (7-17) mg/dL Creatinine (0.52-1.04) mg/dL Estimated GFR (>60) mL/min BUN/Creatinine Ratio (6-22) Glucose 89 (80-110) mg/dL Calcium 9.0 9.2 (8.4-10.2) mg/dL Total Bilirubin 0.7 (0.2-1.3) mg/dL AST 38 H (14-36) IU/L ALT 18 (<35) IU/L Alkaline Phosphatase 136 H (38-126) U/L Troponin I < 0.012 < 0.012 (0.01-0.034) ng/mL Total Protein 6.7 (6.3-8.2) g/dL Albumin 3.7 (3.5-5.0) g/dL Globulin 3.0 (1.7-4.1) g/dL Albumin/Globulin Ratio 1.2 (1.0-2.8) Point of Care Testing Glucose POC 100 ECG Data Attestation: I personally reviewed and interpreted this ECG as follows: Interpretation: Normal sinus rhythm with rate of 67, no obvious ST segment elevation or depression symptoms. Low amplitude lead 3 noted. MN 146, QRS 70, QTC 420. 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 Afebrile, sirs screen negative. Normal neuro exam, no associated chest pain or palpitations, no infectious symptoms. No recent diarrhea GI bleeding symptoms. IV fluids given shortly after triage, she feels better. EKG shows normal sinus rhythm, no obvious ischemic changes. Lab results are still pending. CBC, CMP unremarkable, initial troponin negative. Repeat interval troponin pending. Repeat troponin also negative, patient feels better, believes she was dehydrated, feels better after IV fluids. No further workup for now. Discharged home per patient request, with . Follow up with PCP advised, further workup as an outpatient for now Critical Care Time Critical Care Time Total Critical Care Time: 31 Attestation: The high probability of a clinically significant, sudden or life threatening deterioration of the [cardiopulmonary] system(s) required my full and direct attention, intervention and personal management. The aggregate critical care time was [31] minutes. This time is in addition to time spent performing reported procedures but includes the following: [x] Data Review and interpretation [x] Patient assessment and monitoring of vital signs [x] Documentation [x] Medication orders and management Discharge Plan Departure Patient Disposition: Home Clinical Impression: Dizziness, Dehydration Activity Restrictions/Additional Instructions: Dizziness and sensation that you might pass out this morning. You had not eaten breakfast, and not taking in much fluids through the day so far today, while working and your patio. Possible dehydration. You were given IV fluids and felt better. Lab testing unremarkable. EKG showed normal rhythm. No associated chest pain, sweating, vomiting, diarrhea, black or red stools, palpitation or heart racing like symptoms, fevers or chills, headache or focal weakness. Possible dehydration by history and response to IV fluids.. Encouraged to take plenty of fluids. Recheck with your doctor in the next couple days, further workup as needed as an outpatient. Return earlier to this/nearest emergency department for any change worsening symptoms or any concerns prior Prescriptions: No Action ASPIRIN (Aspirin Low Dose) 81 mg PO Q DAY Qty: 0 CALCIUM CARBONATE/VITAMIN D3 (Oyster Shell Calcium-Vit D Tab) 600 mg PO Q DAY Qty: 0 CHOLECALCIFEROL (VITAMIN D3) (Vitamin D3) 200 iu PO Q DAY Qty: 0 lisinopril 20 mg tablet 40 mg PO DAILY Qty: 20 0RF Referrals: Jeanie Hills MD [Primary Care Provider] - Stand Alone Forms: Patient Portal/API
[2024-02-25 18:37] LABS: Alanine Aminotransferase 18 IU/L (<35); Albumin 3.7 g/dL (3.5-5.0); Albumin Globulin Ratio 1.2 (1.0-2.8); Alkaline Phosphatase 136 U/L (38-126); Aspartate Aminotransferase 38 IU/L (14-36); BUN Creatinine Ratio 13.6 (6-22); Bilirubin Total 0.7 mg/dL (0.2-1.3); Blood Urea Nitrogen 15 mg/dL (7-17); Calcium 9.2 mg/dL (8.4-10.2); Carbon Dioxide 21 mmol/L (22-32); Chloride 113 mmol/L (98-107); Estimated Glomerular Filt Rate 51 mL/min (>60); Glucose 89 mg/dL (80-110); HEMOLYSIS < 15 (0-50); Sodium 139 mmol/L (137-145); Total Protein 6.7 g/dL (6.3-8.2)
[2024-02-25 18:48] LABS: Troponin I < 0.012 ng/mL (0.01-0.034)
[2024-02-25 19:52] LABS: Troponin I < 0.012 ng/mL (0.01-0.034)
== END 2024-02-25 20:36 | disposition home or self-care (01) ==
PROVIDERS: Emergency Medicine; Emergency Provider Emergency Medicine; PCP Internal Medicine
DX: E86.0 Dehydration (principal); R42 Dizziness and giddiness
CPT/HCPCS: 36415; 80048; 80053; 84484; 85025; 93005; 96360; 99283; 99284

== ENCOUNTER → 2024-07-21 11:29 | Outpatient (CLI) | payer MEDICARE, SELFPAY ==
--- NOTE | 2024-07-21 11:32 | DI.MG.S_ITS ---
BILATERAL DIGITAL SCREENING MAMMOGRAM 3D/2D WITH CAD: 07/21/2024 CLINICAL: Routine screening. Family history of breast cancer. Comparison is made to exams dated: 06/09/2023 mammogram, 05/09/2022 mammogram, 04/21/2021 mammogram, 06/07/2020 mammogram, and 06/03/2019 mammogram - [facility]. There are scattered areas of fibroglandular density (category b / 25%-50% glandular tissue). Current study was also evaluated with a Computer Aided Detection (CAD) system. There are benign vascular calcifications in both breasts. There also is a biopsy clip in the left breast. No significant masses, calcifications, or other findings are seen in either breast. There has been no significant interval change. IMPRESSION: BENIGN There is no mammographic evidence of malignancy. A 1 year screening mammogram is recommended. Based on the Tyrer Cuzick model (a risk assessment model) the patient's lifetime risk is 3.2% and her 10 year risk is 0.0%. According to the ACR, ACS, and NCCN guidelines, an annual breast MRI exam along with mammogram is recommended if the patient's lifetime risk is 20% or greater. This exam was interpreted at Station ID: [id number]. NOTE: For mammograms, a report in lay terms will be sent to the patient. Approximately 15% of breast malignancies will not be visualized mammographically. In the management of a palpable breast mass, a negative mammogram must not discourage biopsy of a clinically suspicious lesion. Electronically Signed By: Mariajose Chavez M.D., Ph.D. homa/tony:07/23/2024 09:24:41 letter sent: Normal Exam ACR BI-RADS Category 2: Benign
== END ==
PROVIDERS: PCP Internal Medicine; Referring Provider Internal Medicine; Visit Provider Internal Medicine
DX: Z12.31 Encounter for screening mammogram for malignant neoplasm of breast (principal); Z80.3 Family history of malignant neoplasm of breast
CPT/HCPCS: 77063; 77067